=== PATIENT | male | born 1960 | race Caucasian/White ===

== ENCOUNTER → 2018-02-17 | Outpatient (CLI) | payer BC | END | disposition home or self-care (01) | LOC: RAD 12:00 | PROVIDERS: ATTEND Internal Medicine | DX: M25.561 Pain in right knee (principal) ==

== ENCOUNTER 2018-02-28 14:03 | Emergency (ER) | payer BC, MEDICAID ==
[~2018-02-28] VITALS: Ht 182.9 cm; Wt 88.5 kg
[2018-02-28] MEDS ORDERED: LISINOPRIL (14:17)
--- NOTE | 2018-02-28 14:24 | NUR ---
PT IS IN ROOM #1A. DR ROSEN EVALUATED THE PT.
[2018-02-28 14:30] LABS: BASOPHILS % (AUTO) 0.6 % (0.0-2.0); EOSINOPHILS # (AUTO) 0.1 K/uL (0.0-0.7); EOSINOPHILS % (AUTO) 1.1 % (0.0-7.0); HEMATOCRIT 43.1 % (36.7-47.1); HEMOGLOBIN 14.7 g/dL (12.5-16.3); LYMPHOCYTES # (AUTO) 0.9 K/uL (20.0-40.0); MEAN CORPUSCULAR HEMOGLOBIN 29.6 uug (23.8-33.4); MEAN CORPUSCULAR HGB CONC 34 g/dL (32.5-36.3); MEAN CORPUSCULAR VOLUME 86.7 fL (73.0-96.2); MONOCYTES # (AUTO) 0.5 K/uL (2.0-10.0); MONOCYTES % (AUTO) 8.3 % (0.0-11.0); NEUTROPHILS # (AUTO) 4.4 K/uL (1.8-8.9); PLATELET COUNT (AUTO) 196 K/uL (152-348); RED BLOOD CELL COUNT(AUTO) 4.97 MIL/uL (4.06-5.63); WHITE BLOOD COUNT (AUTO) 5.9 K/uL (3.6-10.2)
[2018-02-28 14:41] LABS: CREATININE 0.9 mg/dL (0.6-1.3); POTASSIUM 3.8 mmol/L (3.5-5.1)
[2018-02-28 14:47] LABS: BILIRUBIN,DIRECT 0.1 mg/dL (0.0-0.2); BILIRUBIN,TOTAL 0.6 mg/dL (0.2-1.0); TOTAL PROTEIN, SERUM 7.1 g/dL (6.4-8.2)
--- NOTE | 2018-02-28 15:16 | NUR ---
PT WAS D/C TO HOME. D/S INSTRUCTIONS GIVEN TO THE PT.
[2018-02-28 15:21] VITALS: BP 131/77
== END 2018-02-28 15:22 | disposition home or self-care (01) ==
LOC: ER 14:05
DX: R00.2 Palpitations (principal); I10 Essential (primary) hypertension
CPT/HCPCS: 36415; 70030-TC; 71045; 84443; 85025; 85730; 93005; A4663

== ENCOUNTER 2019-06-04 10:52 | Emergency (ER) | payer MEDICAID ==
[~2019-06-04] VITALS: Ht 182.9 cm; Wt 88.5 kg
[~2019-06-04 10:52] MED LIST: LISINOPRIL
[2019-06-04] MEDS ORDERED: ALLO100T PO (11:09)
[2019-06-04] MEDS ORDERED: methylPREDNISolone ACETATE 40 MG VIAL IM ONE (11:45)
[2019-06-04] MEDS ORDERED: methylPREDNISolone ACETATE 40 MG VIAL ONE (11:45)
--- NOTE | 2019-06-04 11:56 | NUR ---
Patient discharged to home in stable conditon. Written and verbal after care instructions given. Patient verbalizes understanding of instructions.
[2019-06-04 11:57] VITALS: BP 106/86
== END 2019-06-04 11:58 | disposition home or self-care (01) ==
LOC: ER 10:52
DX: M10.9 Gout, unspecified (principal); I10 Essential (primary) hypertension; Z79.899 Other long term (current) drug therapy
CPT/HCPCS: 96372; 99283; J1030; A4663